=== PATIENT | female | born 1985 | race Caucasian/White ===

== ENCOUNTER 2016-06-09 11:14 | Emergency (ER) | payer MEDICAID, OTHER ==
[2016-06-09 11:25] VITALS: BP 115/72
--- NOTE | 2016-06-09 12:06 | UC ---
FLU HPI - HPI Summary HPI Summary: 1 week of worsening cough, chest congestion fever around 100. work in a [employer] and did get a flu vaccine - History of Current Complaint Chief Complaint: UCRespiratory Stated Complaint: COUGH CONGESTION Time Seen by Provider: 06/09/16 11:58 Hx Obtained From: Patient Hx Last Menstrual Period: 06/07/16 ?: No Onset/Duration: Sudden Onset, Lasting Days - 7, Still Present Severity Currently: Moderate Severity Initially: Moderate Pain Intensity: 7 Pain Scale Used: 0-10 Numeric Associated Signs & Symptoms: Positive: Fever - 100, Myalgia, Cough Related Hx: Possible Flu/Infectious Exposure, Smoking - Allergy/Home Medications Allergies/Adverse Reactions: Allergies Allergy/AdvReac Type Severity Reaction Status Date / Time Promethazine [From Phenergan] Allergy Mild Hives Verified 06/09/16 11:21 Atomoxetine [From Strattera] AdvReac Mild Palpitation Verified 06/09/16 11:21 s Morphine AdvReac Headache Verified 06/09/16 11:21 Home Medications: Home Medications QUEtiapine TAB* [Seroquel TAB*] 100 mg PO BEDTIME 06/09/16 [History Confirmed ] PMH/Surg Hx/FS Hx/Imm Hx Previously Healthy: No Endocrine History Of: Denies: Diabetes, Thyroid Disease Cardiovascular History Of: Denies: Cardiac Disorders, Hypertension, Pacemaker/ICD, Congestive Heart Failure, Deep Vein Thrombosis Respiratory History Of: Denies: COPD, Asthma, Pneumonia, Pulmonary Embolism GI/ History Of: Denies: Ulcer, Gastrointestinal Bleed, Gall Bladder Disease, Renal Disease Neurological History Of: Reports: Migraine Denies: TIA, CVA, Dementia, Seizures Psychological History Of: Reports: Depression Denies: Anxiety, Bipolar Disorder, Schizophrenia Cancer History Of: Denies: Lung Cancer Other History Of: Negative For: Anticoagulant Therapy - Surgical History Surgical History: Yes Surgery Procedure, Year, and Place: tonsills/cyst removed right breast/ /TUBAL LIGATION - Family History Known Family History: Positive: None - Social History Occupation: Employed Full-time Lives: With Family Alcohol Use: None Substance Use Type: None, Marijuana Substance Use Comment - Amount & Last Used: former Smoking Status (MU): Light Every Day Tobacco Smoker Amount Used/How Often: 1/2 PPD Length of Time of Smoking/Using Tobacco: since age 16 Have You Smoked in the Last Year: Yes Household Exposure Type: Cigarettes Cessation Counseling: Counseled 3+Min - 10 Min - Immunization History Most Recent Tetanus Shot: not sure Review of Systems Constitutional: Fever, Chills Skin: Negative Eyes: Negative ENT: Negative Respiratory: Shortness Of Breath, Cough Cardiovascular: Negative Gastrointestinal: Negative Genitourinary: Negative Motor: Negative Neurovascular: Negative Musculoskeletal: Arthralgia Neurological: Negative Psychological: Negative All Other Systems Reviewed And Are Negative: Yes Physical Exam Triage Information Reviewed: Yes Appearance: Well-Nourished, Ill-Appearing - mild-moderate, Pain Distress - mild Vital Signs: Initial Vital Signs Temp 98.6 F 06/09/16 11:22 Pulse 84 06/09/16 11:22 Resp 20 06/09/16 11:22 BP 115/72 06/09/16 11:22 Pulse Ox 99 06/09/16 11:22 Vital Signs Reviewed: Yes Eye Exam: Normal Eyes: Positive: Conjunctiva Clear ENT Exam: Normal ENT: Positive: Normal ENT inspection, Hearing grossly normal, Pharynx normal, TMs normal. Negative: Nasal congestion, Nasal drainage, Tonsillar swelling, Tonsillar exudate, Trismus, Other: Dental Exam: Normal Neck exam: Normal Neck: Positive: Supple, Nontender, No Lymphadenopathy Respiratory Exam: Normal Respiratory: Positive: Chest non-tender, No respiratory distress, No accessory muscle use, Wheezing - left Cardiovascular Exam: Normal Cardiovascular: Positive: RRR, No Murmur, Pulses Normal, Brisk Capillary Refill Musculoskeletal Exam: Normal Musculoskeletal: Positive: Strength Intact, ROM Intact, No Edema Neurological Exam: Normal Neurological: Positive: Alert, Muscle Tone Normal Psychological Exam: Normal Skin Exam: Normal Diagnostics - Laboratory Diagnostic Studies Completed/Ordered: influenza B (+) - Radiology No standard instances Xray Interpretation: No Acute Changes Radiology Interpretation Completed By: Radiologist Flu Course/Dx - Course Course Of Treatment: nicotine cesation information, prednisone, albuterol, increase fluids, rest off work follow with pcp - Differential Dx/Diagnosis Differential Diagnosis/HQI/PQRI: Influenza, Pneumonia, Upper Respiratory Infection Provider Diagnoses: Influenz B , nicotine dependant Discharge - Discharge Plan Condition: Stable Disposition: HOME Prescriptions: Albuterol HFA INHALER* [Ventolin HFA Inhaler*] 2 puff INH Q4H PRN #1 mdi PRN Reason: cough/wheeze predniSONE TAB* [Deltasone TAB*] 10 mg PO DAILY #20 tab Patient Education Materials: How to Use a Metered-Dose Inhaler (ED), Influenza (ED) Forms: *Work Release Referrals: Puma Briones MD [Primary Care Provider] - 5 Days
[2016-06-09] MEDS ORDERED: Albuterol/Ipratropium NEB.SOL* Albuterol 2.5 MG/Ipratropium 0.5 MG 3 ML INH ONE (12:07)
[2016-06-09] MEDS ORDERED: predniSONE TAB* 20 MG PO ONE (12:07)
--- NOTE | 2016-06-09 12:46 | RAD ---
Indication: Shortness of breath, cough. 2 views of the chest including dual energy PA views demonstrate no mediastinal shift. Heart is of normal size and configuration. Lung dennis show no pleural fluid, pneumonia or pneumothorax. IMPRESSION: No active cardiopulmonary disease is noted.
== END 2016-06-09 13:20 | disposition home or self-care (01) ==
LOC: UCEAST 11:14
DX: J11.1 Influenza due to unidentified influenza virus with other respiratory manifestations (principal); F17.210 Nicotine dependence, cigarettes, uncomplicated; Z88.5 Allergy status to narcotic agent; Z88.8 Allergy status to other drugs, medicaments and biological substances; Z71.6 Tobacco abuse counseling
CPT/HCPCS: 71020; 87502; 99212; A9270-GY; G0463; J7512

== ENCOUNTER 2016-06-10 06:42 | Emergency (ER) | payer OTHER ==
[2016-06-10] MEDS ORDERED: NS 0.9% 1000 ML* 2,000 ML IV ONE (07:46)
[2016-06-10] MEDS ORDERED: Ketorolac INJ* 30 MG/ML 1 ML VIAL IV ONE (07:46)
[2016-06-10] MEDS ORDERED: diPHENhydraMINE IV* 50 MG/ML 1 ml VIAL (BENADRYL) IV ONE (07:46)
[2016-06-10] MEDS ORDERED: Metoclopramide IV* 5 MG/ML 2 ML VIAL IV SLOW PU ONE (07:47)
[2016-06-10 09:37] VITALS: BP 93/61
--- NOTE | 2016-06-10 09:41 | ED ---
Headache - HPI Summary HPI Summary: Patient arrives to ED with CC of migraine THOMAS which began this morning. She was seen in [facility] yesterday and dx with influenza. She is not on tamiflu d/t onset of symptoms. Currently on prednisone. She states she has had chronic migraines in the past which have been well controlled with marijuana. She states she cannot smoke marijuana today d/t coughing fits making her flu symptoms worse. She denies SOB, but feels heavy in her chest. She also endorses body aches, chills and generalized malaise. She does not take any home medications for any reason. Afebrile on arrival. - History Of Current Complaint Chief Complaint: EDHeadache Stated Complaint: MIGRAINE Time Seen by Provider: 06/10/16 07:25 Hx Obtained From: Patient Hx Last Menstrual Period: 06/07/16 Onset/Duration: Gradual Onset, Started hours ago Initially Headache Was: Initial Pain Scale(0-10)= - 8 Currently Pain Is: Current Pain Scale(0-10)= - 8 Timing: Constant Character: Throbbing, Pressure, Migraine Location of Headache: Frontal Aggravating Factor: Bright Lights, Other - recent flu dx Allevating Factors: Rest Associated Signs And Symptoms: Nausea Related History: Similar Episode/DX As: - previous migraines - Risk Factors SAH Risk Factors: Negative Meningitis Risk Factors: Negative SDH Risk Factors: Negative Temporal Arteritis Risk Factors: Female, - Allergies/Home Medications Allergies/Adverse Reactions: Allergies Allergy/AdvReac Type Severity Reaction Status Date / Time Promethazine [From Phenergan] Allergy Mild Hives Verified 06/09/16 11:21 Atomoxetine [From Strattera] AdvReac Mild Palpitation Verified 06/09/16 11:21 s Morphine AdvReac Headache Verified 06/09/16 11:21 PMH/Surg Hx/FS Hx/Imm Hx Previously Healthy: Yes Endocrine/Hematology History: Denies: Hx Anticoagulant Therapy, Hx Diabetes, Hx Thyroid Disease, Hx Anemia , Hx Unexplained Bleeding Cardiovascular History: Denies: Hx Aneurysm, Hx Angina, Hx Angioplasty, Hx Auto Implanted Cardiovert Defib, Hx Cardiac Arrest, Hx Cardiomegaly, Hx Congenital Heart Disease, Hx Congestive Heart Failure, Hx Coronary Artery Disease, Hx Deep Vein Thrombosis, Hx Hypercholesterolemia, Hx Hypotension, Hx Hypertension, Hx Pacemaker/ICD, Hx Peripheral Vascular Disease, Hx Rheumatic Fever, Hx Syncope, Hx Valvular Heart Disease, Other Cardiovascular Problems/Disorders Respiratory History: Denies: Hx Asthma, Hx Chronic Bronchitis, Hx Chronic Obstructive Pulmonary Disease (COPD), Hx Cystic Fibrosis, Hx Lung Cancer, Hx Pleural Effusion, Hx Pneumonia, Hx Pulmonary Edema, Hx Pulmonary Embolism, Hx Seasonal Allergies, Hx Sleep Apnea, Other Respiratory Problems/Disorders GI History: Reports: Other GI Disorders - nausea Denies: Hx Cirrhosis, Hx Crohn's Disease, Hx Diverticulosis, Hx Gall Bladder Disease, Hx Gastroesophageal Reflux Disease, Hx Gastrointestinal Bleed, Hx Hiatal Hernia, Hx Irritable Bowel, Hx Jaundice, Hx Obstructive Bowel, Hx Ileostomy, Hx Pyloric Stenosis, Hx Ulcer History: Denies: Hx Renal Disease Musculoskeletal History: Reports: Hx Back Problems - Old compression fx in L2 Denies: Hx Arthritis, Hx Bursitis, Hx Congenital Bone Abnormalities, Hx Fibromyalgia, Hx Gout, Hx Orthopedic Injury, Hx Osteoporosis, Hx Scoliosis, Hx Tendonitis Comment Only: Other Musculoskeletal History - hx left ankle/L2 compression fx Sensory History: Reports: Hx Contacts or Glasses - contacts, Other Sensory Impairments - Finds night driving or driving in glaring sun difficult. Denies: Hx Cataracts, Hx Eye Injury, Hx Eye Prosthesis, Hx Glaucoma, Hx Macular Degeneration, Hx Vision Problem, Hx Deafness, Hx Hearing Aid, Hx Hearing Problem Opthamlomology History: Reports: Hx Contacts or Glasses - contacts, Other Sensory Impairments - Finds night driving or driving in glaring sun difficult. Denies: Hx Cataracts, Hx Eye Injury, Hx Eye Prosthesis, Hx Glaucoma, Hx Macular Degeneration, Hx Vision Problem Neurological History: Reports: Hx Headaches, Hx Migraine Denies: Hx Dementia, Hx Developmental Delay, Hx Seizures, Hx Spinal Cord Injury, Hx Transient Ischemic Attacks (TIA), Other Neuro Impairments/Disorders Psychiatric History: Reports: Hx Depression, Hx Panic Disorder, Other Psychiatric Issues/Disorders - Attention deficit disorder Denies: Hx Anxiety, Hx Attention Deficit Hyperactivity Disorder, Hx Eating Disorder, Hx Post Traumatic Stress Disorder, Hx Inpatient Treatment, Hx Community Mental Health Tx, Hx Schizophrenia, Hx Bipolar Disorder, Hx Suicide Attempt, Hx of Violent Episodes Against Others, Hx Substance Abuse - Surgical History Surgery Procedure, Year, and Place: tonsills/cyst removed right breast/ /TUBAL LIGATION Hx Anesthesia Reactions: No - Immunization History Date of Tetanus Vaccine: PT STATES UNSURE Date of Influenza Vaccine: None Infectious Disease History: No Infectious Disease History: Reports: Hx Hepatitis - HEP C, Hx Shingles - 2009 or 2009 Denies: Hx Clostridium Difficile, Hx Human Immunodeficiency Virus (HIV), Hx Tuberculosis, Hx Known/Suspected VRE, Hx Known/Suspected VRSA, History Other Infectious Disease, Traveled Outside the [place] in Last 30 Days - Family History Known Family History: Positive: None - Social History Occupation: Employed Full-time Lives: Alone Alcohol Use: None Hx Substance Use: Yes Substance Use Type: Reports: None, Marijuana Substance Use Comment - Amount & Last Used: former Hx Tobacco Use: Yes Smoking Status (MU): Light Every Day Tobacco Smoker Amount Used/How Often: 1/2 PPD Length of Time of Smoking/Using Tobacco: since age 16 Have You Smoked in the Last Year: Yes Review of Systems Positive: Chills, Fatigue Positive: Photophobia ENT: Negative Cardiovascular: Negative Positive: Cough Positive: Nausea Positive: no symptoms reported, see HPI Musculoskeletal: Negative Positive: Headache Psychological: Normal All Other Systems Reviewed And Are Negative: Yes Physical Exam Triage Information Reviewed: Yes Vital Signs On Initial Exam: Initial Vitals Temp Pulse Resp BP Pulse Ox 97.7 F 76 16 128/72 100 06/10/16 06:44 06/10/16 06:44 06/10/16 06:44 06/10/16 06:44 06/10/16 06:44 Vital Signs Reviewed: Yes Appearance: Positive: Ill-Appearing Skin: Positive: Warm, Skin Color Reflects Adequate Perfusion Head/Face: Positive: Normal Head/Face Inspection Eyes: Positive: EOMI, MALU Neck: Positive: Supple, No Lymphadenopathy Respiratory/Lung Sounds: Positive: Rhonchi Cardiovascular: Positive: Normal, RRR Musculoskeletal: Positive: Normal, Strength/ROM Intact Neurological: Positive: Normal, Normal Gait, Speech Normal Psychiatric: Positive: Normal Diagnostics - Vital Signs Vital Signs Temp Pulse Resp BP Pulse Ox 06/10/16 06:44 97.7 F 76 16 128/72 100 - Laboratory Result Diagrams: 06/10/16 11:02 Lab Statement: Any lab studies that have been ordered have been reviewed, and results considered in the medical decision making process. Headache Course/Dx - Course Course Of Treatment: Fluids given. Reglan, benadryl and toradol given. Patient improved. Labs WNL. rhonchorous lung sounds bilaterally, chest xray yesterday showed no pathology. Flu positive yesterday. currently on prednisone. Xray yesterday read as WNL with no active disease. Reglan rx given. Continue fluids, rest, humidifer and tylenol for fever. Encouraged regimen of ibuprofen and reglan if symptoms of migraine develop again. - Diagnoses Differential Diagnosis/HQI/PQRI: Migraine, Sinus Headache, Tension Headache, Other - marijuana rebound Provider Diagnoses: Migraine without aura Discharge - Discharge Plan Condition: Stable Disposition: HOME Prescriptions: Metoclopramide TAB* [Reglan TAB*] 10 mg PO Q8H #15 tab MDD 3 Patient Education Materials: Migraine Headache (ED) Referrals: Puma Briones MD [Primary Care Provider] - Additional Instructions: Follow up with PCP. Rest, drink plenty of fluids, humidifier in the home. Ibuprofen 600mg and Reglan 10mg at first onset of THOMAS. At night, you may add 25mg Benadryl. If you develop worsening symptoms, come back to ED.
[2016-06-10 11:10] LABS: Hematocrit 39 % (35-47); Hemoglobin 12.9 g/dl (12.0-16.0); Mean Corpuscular HGB Conc 33 g/dl (31-36); Mean Corpuscular Hemoglobin 32 pg (27-31); Mean Corpuscular Volume 96 fL (80-97); Mean Platelet Volume 8 um3 (7.4-10.4); Red Blood Count 4.03 10^6/ul (4.0-5.4); Red Cell Distribution Width 13 % (10.5-15); White Blood Count 7.2 10^3/ul (3.5-10.8)
[2016-06-10 11:24] LABS: Albumin 3.7 g/dL (3.2-5.2); BUN/Creatinine Ratio 18.3 (8-20); Calcium 8.6 mg/dL (8.6-10.3); EGFR Non-African American 117.4 (>60); Globulin 3.3 g/dL (2-4); Potassium 3.3 mmol/L (3.5-5.0); Total Bilirubin 0.3 mg/dL (0.2-1.0)
[2016-06-10 12:58] LABS: Erythrocyte Sed Rate 17 mm/Hr (0-14)
== END 2016-06-10 12:00 | disposition home or self-care (01) ==
LOC: ED 06:42
DX: G43.009 Migraine without aura, not intractable, without status migrainosus (principal); R53.83 Other fatigue; R68.83 Chills (without fever); R05 Cough; R51 Headache; F17.210 Nicotine dependence, cigarettes, uncomplicated
CPT/HCPCS: 36415; 80053; 83605; 85025; 85652; 96374; 96375; 99283; J1200; J1885

== ENCOUNTER 2017-10-12 22:04 | Emergency (ER) | payer SELFPAY ==
[2017-10-12] MEDS ORDERED: predniSONE TAB* 20 MG PO ONE (23:13)
[2017-10-12] MEDS ORDERED: diPHENhydraMINE PO* 25 MG PO ONE (23:13)
[2017-10-12] MEDS ORDERED: Famotidine TAB* 20 MG PO ONE (23:13)
[2017-10-12] MEDS ORDERED: predniSONE TAB* 20 MG ONE (23:26)
--- NOTE | 2017-10-13 00:25 | ED ---
Bite Injury/Animal - HPI Summary HPI Summary: Complains of redness and swelling to right hand subsequent to possible insect bites. Patient states also raised bumps that appeared to be insect bites appearing on right forearm and upper arm. Bumps are pruritic, nonpainful. Denies prior reaction to insect bites. Unaware of when she was bitten or what she was bitten by. Also denies fever, cough, sore throat, CP, SOB, oral swelling, facial swelling, N/V/D, abdominal pain, change in urinary BM. Medical history is migraines. Patient's states she took Benadryl 50 MG at 2:30 PM - History of Current Complaint Chief Complaint: EDRashSkinAbscess Stated Complaint: RT HAND SWOLLEN Time Seen by Provider: 10/12/17 22:58 Hx Obtained From: Patient Hx Last Menstrual Period: 12/23/16 Onset of Injury: Happened hours ago Severity Initially: Mild Severity Currently: Moderate Pain Intensity: 7 Pain Scale Used: 0-10 Numeric Aggravating Factor(s): Nothing Alleviating Factor(s): Nothing Associated Signs And Symptoms: Positive: Negative - Allergies/Home Medications Allergies/Adverse Reactions: Allergies Allergy/AdvReac Type Severity Reaction Status Date / Time MS Promethazine Allergy Mild Hives Verified 01/25/17 16:26 [From Phenergan] MS Atomoxetine AdvReac Mild Palpitation Verified 01/25/17 16:26 [From Strattera] s MS Morphine [Morphine] AdvReac Headache Verified 01/25/17 16:26 PMH/Surg Hx/FS Hx/Imm Hx Endocrine/Hematology History: Denies: Hx Anticoagulant Therapy, Hx Diabetes, Hx Thyroid Disease, Hx Anemia , Hx Unexplained Bleeding Cardiovascular History: Denies: Hx Aneurysm, Hx Angina, Hx Angioplasty, Hx Auto Implanted Cardiovert Defib, Hx Cardiac Arrest, Hx Cardiomegaly, Hx Congenital Heart Disease, Hx Congestive Heart Failure, Hx Coronary Artery Disease, Hx Deep Vein Thrombosis, Hx Hypercholesterolemia, Hx Hypotension, Hx Hypertension, Hx Pacemaker/ICD, Hx Peripheral Vascular Disease, Hx Rheumatic Fever, Hx Syncope, Hx Valvular Heart Disease, Other Cardiovascular Problems/Disorders Respiratory History: Denies: Hx Asthma, Hx Chronic Bronchitis, Hx Chronic Obstructive Pulmonary Disease (COPD), Hx Cystic Fibrosis, Hx Lung Cancer, Hx Pleural Effusion, Hx Pneumonia, Hx Pulmonary Edema, Hx Pulmonary Embolism, Hx Seasonal Allergies, Hx Sleep Apnea, Other Respiratory Problems/Disorders GI History: Reports: Other GI Disorders - nausea Denies: Hx Cirrhosis, Hx Crohn's Disease, Hx Diverticulosis, Hx Gall Bladder Disease, Hx Gastroesophageal Reflux Disease, Hx Gastrointestinal Bleed, Hx Hiatal Hernia, Hx Irritable Bowel, Hx Jaundice, Hx Obstructive Bowel, Hx Ileostomy, Hx Pyloric Stenosis, Hx Ulcer History: Denies: Hx Renal Disease Musculoskeletal History: Reports: Hx Back Problems - Old compression fx in L2 Denies: Hx Arthritis, Hx Bursitis, Hx Congenital Bone Abnormalities, Hx Fibromyalgia, Hx Gout, Hx Orthopedic Injury, Hx Osteoporosis, Hx Scoliosis, Hx Tendonitis Comment Only: Other Musculoskeletal History - hx left ankle/L2 compression fx Sensory History: Reports: Hx Contacts or Glasses - contacts, Other Sensory Impairments - Finds night driving or driving in glaring sun difficult. Denies: Hx Cataracts, Hx Eye Injury, Hx Eye Prosthesis, Hx Glaucoma, Hx Macular Degeneration, Hx Vision Problem, Hx Deafness, Hx Hearing Aid, Hx Hearing Problem Opthamlomology History: Reports: Hx Contacts or Glasses - contacts, Other Sensory Impairments - Finds night driving or driving in glaring sun difficult. Denies: Hx Cataracts, Hx Eye Injury, Hx Eye Prosthesis, Hx Glaucoma, Hx Macular Degeneration, Hx Vision Problem Neurological History: Reports: Hx Headaches, Hx Migraine Denies: Hx Dementia, Hx Developmental Delay, Hx Seizures, Hx Spinal Cord Injury, Hx Transient Ischemic Attacks (TIA), Other Neuro Impairments/Disorders Psychiatric History: Reports: Hx Depression, Hx Panic Disorder, Other Psychiatric Issues/Disorders - Attention deficit disorder Denies: Hx Anxiety, Hx Attention Deficit Hyperactivity Disorder, Hx Eating Disorder, Hx Post Traumatic Stress Disorder, Hx Inpatient Treatment, Hx Community Mental Health Tx, Hx Schizophrenia, Hx Bipolar Disorder, Hx Suicide Attempt, Hx of Violent Episodes Against Others, Hx Substance Abuse - Surgical History Surgery Procedure, Year, and Place: tonsills/cyst removed right breast/ /TUBAL LIGATION Hx Anesthesia Reactions: No - Immunization History Date of Tetanus Vaccine: unk Date of Influenza Vaccine: fall 2016 Infectious Disease History: No Infectious Disease History: Reports: Hx Hepatitis - HEP C, Hx Shingles - 2008 or 2009 Denies: Hx Clostridium Difficile, Hx Human Immunodeficiency Virus (HIV), Hx Tuberculosis, Hx Known/Suspected VRE, Hx Known/Suspected VRSA, History Other Infectious Disease, Traveled Outside the [place] in Last 30 Days - Family History Known Family History: Positive: None - Social History Alcohol Use: None Hx Substance Use: Yes Substance Use Type: Reports: Marijuana Substance Use Comment - Amount & Last Used: former Hx Tobacco Use: Yes Smoking Status (MU): Light Every Day Tobacco Smoker Amount Used/How Often: 1/2 PPD Length of Time of Smoking/Using Tobacco: since age 16 Have You Smoked in the Last Year: Yes Review of Systems Constitutional: Negative Eyes: Negative ENT: Negative Cardiovascular: Negative Respiratory: Negative Gastrointestinal: Negative Genitourinary: Negative Musculoskeletal: Negative Positive: Rash Neurological: Negative Psychological: Normal All Other Systems Reviewed And Are Negative: Yes Physical Exam - Summary Physical Exam Summary: Redness and swelling to dorsal surface of right hand, with raised areas resembling insect bites. Same raised areas of insect bites on upper right forearm and upper right arm. Rash is blanchable. No oral or facial swelling. No work of breathing. Triage Information Reviewed: Yes Vital Signs On Initial Exam: Initial Vitals Temp Pulse Resp BP Pulse Ox 98.9 F 98 20 132/78 98 10/12/17 22:12 10/12/17 22:12 10/12/17 22:12 10/12/17 22:12 10/12/17 22:12 Vital Signs Reviewed: Yes Appearance: Positive: Well-Appearing Skin: Positive: Warm Head/Face: Positive: Normal Head/Face Inspection Eyes: Positive: Normal ENT: Positive: Normal ENT inspection Neck: Positive: Supple Respiratory/Lung Sounds: Positive: Clear to Auscultation Cardiovascular: Positive: Normal Abdomen Description: Positive: Nontender Musculoskeletal: Positive: Normal Neurological: Positive: Normal Psychiatric: Positive: Normal AVPU Assessment: Alert - [place] Coma Scale Best Eye Response: 4 - Spontaneous Best Motor Response: 6 - Obeys Commands Best Verbal Response: 5 - Oriented Coma Scale Total: 15 Diagnostics - Vital Signs Vital Signs Temp Pulse Resp BP Pulse Ox 10/12/17 22:12 98.9 F 98 20 132/78 98 - Laboratory Lab Statement: Any lab studies that have been ordered have been reviewed, and results considered in the medical decision making process. Bite Injury Course/Dx - Course Course Of Treatment: Complains of redness and swelling to right hand subsequent to possible insect bites. Patient states also raised bumps that appeared to be insect bites appearing on right forearm and upper arm. Bumps are pruritic, nonpainful. Denies prior reaction to insect bites. Unaware of when she was bitten or what she was bitten by. Also denies fever, cough, sore throat, CP, SOB, oral swelling, facial swelling, N/V/D, abdominal pain, change in urinary BM. Medical history is migraines. Patient's states she took Benadryl 50 MG at 2:30 PM. Redness and swelling to dorsal surface of right hand, with raised areas resembling insect bites. Same raised areas of insect bites on upper right forearm and upper right arm. Rash is blanchable. No oral or facial swelling. No work of breathing. Swelling diminished somewhat one hour post meds. No oral or facial swelling. Rx for prednisone 40 mg daily 5 days - Diagnoses Provider Diagnosis: Allergic reaction Discharge - Sign-Out/Discharge Documenting (check all that apply): Patient Departure - Discharge Plan Condition: Stable Disposition: HOME Prescriptions: predniSONE TAB* [Deltasone 20 MG TAB*] 40 mg PO DAILY 5 Days #5 tab Patient Education Materials: General Allergic Reaction (ED) Referrals: Puma Briones MD [Primary Care Provider] - Additional Instructions: Take prednisone as directed. Follow-up with primary care. Return to the ED for any new or worsening symptoms - Billing Disposition and Condition Condition: STABLE Disposition: Home
[2017-10-13 01:05] VITALS: BP 128/76
== END 2017-10-13 01:03 | disposition home or self-care (01) ==
LOC: ED 22:04
DX: R21 Rash and other nonspecific skin eruption (principal); T78.40XA Allergy, unspecified, initial encounter
CPT/HCPCS: 99282; A9270-GY; J7512

== ENCOUNTER 2018-03-05 09:59 | Emergency (ER) | payer SELFPAY ==
[2018-03-05 10:27] VITALS: BP 124/72
--- NOTE | 2018-03-05 10:48 | UC ---
General HPI - HPI Summary HPI Summary: Two days of URI symtoms - cough, congestion and ears feel full. No N/V/D. No SOB Taking Mucinex with minimal relief. Chest feels sore. Good PO. Daughter also here with same symptoms. Needs a note for work - Works at [employer]. PMhx & Meds: Reviewed - History of Current Complaint Chief Complaint: UCRespiratory Stated Complaint: HEAD/CHEST CONGESTION Time Seen by Provider: 03/05/18 10:18 Hx Last Menstrual Period: 02/22/18 Pain Intensity: 3 - Allergy/Home Medications Allergies/Adverse Reactions: Allergies Allergy/AdvReac Type Severity Reaction Status Date / Time atomoxetine [From Strattera] Allergy Severe Palpitation Verified 03/05/18 10:29 s morphine Allergy Severe Headache Verified 03/05/18 10:29 promethazine [From Phenergan] Allergy Severe Hives Verified 03/05/18 10:29 Home Medications: Home Medications NK [No Home Medications Reported] 03/05/18 [History Confirmed 03/05/18] PMH/Surg Hx/FS Hx/Imm Hx Previously Healthy: Yes Other History Of: Hepatitis C Negative For: Anticoagulant Therapy - Surgical History Surgical History: Yes Surgery Procedure, Year, and Place: tonsills/cyst removed right breast/ /TUBAL LIGATION - Family History Known Family History: Positive: None - Social History Alcohol Use: None Substance Use Type: Marijuana Substance Use Comment - Amount & Last Used: former Smoking Status (MU): Former Smoker Amount Used/How Often: 1/2 PPD Length of Time of Smoking/Using Tobacco: since age 16 Have You Smoked in the Last Year: Yes Household Exposure Type: Cigarettes - Immunization History Most Recent Tetanus Shot: not sure Review of Systems All Other Systems Reviewed And Are Negative: Yes Physical Exam Appearance: Well-Appearing Vital Signs: Initial Vital Signs Temp 97.7 F 03/05/18 10:18 Pulse 80 03/05/18 10:18 Resp 16 03/05/18 10:18 BP 124/72 03/05/18 10:18 Pulse Ox 98 03/05/18 10:18 Vital Signs Reviewed: Yes ENT: Positive: Nasal congestion, Other - clear fluid behind TM's b/l Neck: Positive: Supple, Nontender Respiratory: Positive: Lungs clear, Normal breath sounds, No respiratory distress Cardiovascular: Positive: RRR, No Murmur Abdomen Description: Positive: Nontender, Soft Course/Dx - Course Course Of Treatment: This is a 32 yr old with URI symptoms. Dx; Upper REspiratory infection. Plan. Continue supportive care. Continue to drink fluids. Can use decongestant and/or cough medicine over the counter as needed as directed. If symptoms persist or worsen, call primary for further evaluation - Diagnoses Provider Diagnosis: Upper respiratory infection Discharge - Sign-Out/Discharge Documenting (check all that apply): Patient Departure All imaging exams completed and their final reports reviewed: No Studies - Discharge Plan Condition: Good Disposition: HOME Patient Education Materials: Upper Respiratory Infection (DC) Forms: *Work Release Referrals: Puma Briones MD [Primary Care Provider] - Additional Instructions: Continue supportive care Continue to drink fluids Can use decongestant and/or cough medicine over the counter as needed as directed If symptoms persist or worsen, call primary for further evaluation - Billing Disposition and Condition Condition: GOOD Disposition: Home
== END 2018-03-05 11:00 | disposition home or self-care (01) ==
LOC: UCEAST 09:59
DX: J06.9 Acute upper respiratory infection, unspecified (principal); Z88.5 Allergy status to narcotic agent; Z88.8 Allergy status to other drugs, medicaments and biological substances; Z87.891 Personal history of nicotine dependence
CPT/HCPCS: 99211; G0463

== ENCOUNTER 2018-03-24 10:33 | Emergency (ER) | payer SELFPAY ==
[2018-03-24 10:55] VITALS: BP 116/77
--- NOTE | 2018-03-24 11:21 | UC ---
Respiratory Complaint HPI - HPI Summary HPI Summary: 3 WKS OF COUCH AND 3 DAYS OF L EAR PAIN - History of Current Complaint Chief Complaint: UCRespiratory Stated Complaint: CONGESTION, EAR PAIN Time Seen by Provider: 03/24/18 11:14 Hx Obtained From: Patient Hx Last Menstrual Period: 03/18/18 Onset/Duration: Gradual Onset Pain Intensity: 4 Pain Scale Used: 0-10 Numeric Character: Cough: Productive Associated Signs And Symptoms: Positive: Fever, Chills. Negative: Dyspnea, Pleuritic Chest Pain, Wheezing - Allergies/Home Medications Allergies/Adverse Reactions: Allergies Allergy/AdvReac Type Severity Reaction Status Date / Time atomoxetine [From Strattera] Allergy Severe Palpitation Verified 03/05/18 10:29 s morphine Allergy Severe Headache Verified 03/05/18 10:29 promethazine [From Phenergan] Allergy Severe Hives Verified 03/05/18 10:29 PMH/Surg Hx/FS Hx/Imm Hx Previously Healthy: Yes Other History Of: Hepatitis C Negative For: Anticoagulant Therapy - Surgical History Surgical History: Yes Surgery Procedure, Year, and Place: tonsills/cyst removed right breast/ /TUBAL LIGATION - Family History Known Family History: Positive: None - Social History Alcohol Use: None Substance Use Type: Marijuana Substance Use Comment - Amount & Last Used: former Smoking Status (MU): Former Smoker Amount Used/How Often: 1/2 PPD Length of Time of Smoking/Using Tobacco: since age 16 Have You Smoked in the Last Year: Yes Household Exposure Type: Cigarettes - Immunization History Most Recent Tetanus Shot: not sure Review of Systems All Other Systems Reviewed And Are Negative: Yes Constitutional: Positive: Fever Skin: Positive: Negative ENT: Positive: Ear Ache, Sinus Congestion Respiratory: Positive: Cough - PRODUCTIVE Cardiovascular: Positive: Negative Neurological: Negative: Headache Physical Exam Triage Information Reviewed: Yes Appearance: Well-Appearing Vital Signs: Initial Vital Signs Temp 97.4 F 03/24/18 10:52 Pulse 74 03/24/18 10:52 Resp 18 03/24/18 10:52 BP 116/77 03/24/18 10:52 Pulse Ox 99 03/24/18 10:52 Vital Signs Reviewed: Yes ENT: Positive: Pharynx normal, TMs normal, Uvula midline Neck: Positive: Supple, Nontender Respiratory: Positive: No respiratory distress, Rhonchi - R SIDE. Negative: Crackles, Stridor, Wheezing Cardiovascular Exam: Normal Neurological: Negative: Fatigued Skin: Negative: Rashes UC Diagnostic Evaluation - Laboratory O2 Sat by Pulse Oximetry: 99 Respiratory Course/Dx - Course Course Of Treatment: ABNORMAL LUNG SOUNDS ON R SIDE - Differential Dx/Diagnosis Differential Diagnosis/HQI/PQRI: Asthma, Bronchitis, Lower Resp Infection, Other Provider Diagnosis: Lower resp. tract infection Discharge - Sign-Out/Discharge Documenting (check all that apply): Patient Departure All imaging exams completed and their final reports reviewed: No Studies - Discharge Plan Condition: Good Disposition: HOME Prescriptions: Azithromycin TAB* [Zithromax TAB (Z-MAGALY) 250 mg #6 tabs] 2 tab PO .TODAY, THEN 1 DAILY #1 magaly Patient Education Materials: Acute Cough (ED) Forms: *Work Release Referrals: Puma Briones MD [Primary Care Provider] - Additional Instructions: I suspect you have a viral cough but given the duration and abnormal lung sounds I am willing to treat with antibiotics. Please finish to completion. - Billing Disposition and Condition Condition: GOOD Disposition: Home
== END 2018-03-24 11:30 | disposition home or self-care (01) ==
LOC: UCEAST 10:33
DX: J22 Unspecified acute lower respiratory infection (principal); H92.02 Otalgia, left ear; Z88.8 Allergy status to other drugs, medicaments and biological substances; Z88.5 Allergy status to narcotic agent; Z87.891 Personal history of nicotine dependence
CPT/HCPCS: 99212; G0463

== ENCOUNTER 2018-03-28 01:29 | Emergency (ER) | payer SELFPAY ==
--- NOTE | 2018-03-28 01:34 | ED ---
Substance Abuse/Use - HPI Summary HPI Summary: This patient is a 32 year old F brought in by ambulance with a chief complaint of heroin overdose since just [employer]. The patient was found unconscious and unresponsive on the floor of her bathroom by her boyfriend. He also mentioned that he found a butterfly and syringe nearby. EMS states that she regained consciousness right before they administered Narcan, which they halted. Patient reports memory loss, confusion, and emesis. She denies deliberate overdose and claims it was straight heroin. She says that she uses heroin less than once a month. Her boyfriend states that she is taking an antibiotic but doesnt know what its for. The patient had an episode of vomiting while in the ED. She does not remember a lot of the incident and asked where she was found. PMHX none. SHX regular marijuanause , lives with boyfriend, occasional heroin use. - History Of Current Complaint Stated Complaint: OD Time Seen by Provider: 03/28/18 01:30 Hx Obtained From: Patient, Family/Treater - boyfriend, EMS Hx Last Menstrual Period: 03/18/18 Onset/Duration of Drug/ETOH Abuse: Hours Ingestion History: Type/Name Of Drug - heroin Timing Of Abuse: Intermittent Character: Stuporous Associated Signs And Symptoms: Confused, Vomiting - Allergies/Home Medications Allergies/Adverse Reactions: Allergies Allergy/AdvReac Type Severity Reaction Status Date / Time atomoxetine [From Strattera] Allergy Severe Palpitation Verified 03/05/18 10:29 s morphine Allergy Severe Headache Verified 03/05/18 10:29 promethazine [From Phenergan] Allergy Severe Hives Verified 03/05/18 10:29 PMH/Surg Hx/FS Hx/Imm Hx Endocrine/Hematology History: Denies: Hx Anticoagulant Therapy, Hx Diabetes, Hx Thyroid Disease, Hx Anemia , Hx Unexplained Bleeding Cardiovascular History: Denies: Hx Aneurysm, Hx Angina, Hx Angioplasty, Hx Auto Implanted Cardiovert Defib, Hx Cardiac Arrest, Hx Cardiomegaly, Hx Congenital Heart Disease, Hx Congestive Heart Failure, Hx Coronary Artery Disease, Hx Deep Vein Thrombosis, Hx Hypercholesterolemia, Hx Hypotension, Hx Hypertension, Hx Pacemaker/ICD, Hx Peripheral Vascular Disease, Hx Rheumatic Fever, Hx Syncope, Hx Valvular Heart Disease, Other Cardiovascular Problems/Disorders Respiratory History: Denies: Hx Asthma, Hx Chronic Bronchitis, Hx Chronic Obstructive Pulmonary Disease (COPD), Hx Cystic Fibrosis, Hx Lung Cancer, Hx Pleural Effusion, Hx Pneumonia, Hx Pulmonary Edema, Hx Pulmonary Embolism, Hx Seasonal Allergies, Hx Sleep Apnea, Other Respiratory Problems/Disorders GI History: Reports: Other GI Disorders - nausea Denies: Hx Cirrhosis, Hx Crohn's Disease, Hx Diverticulosis, Hx Gall Bladder Disease, Hx Gastroesophageal Reflux Disease, Hx Gastrointestinal Bleed, Hx Hiatal Hernia, Hx Irritable Bowel, Hx Jaundice, Hx Obstructive Bowel, Hx Ileostomy, Hx Pyloric Stenosis, Hx Ulcer History: Denies: Hx Renal Disease Musculoskeletal History: Reports: Hx Back Problems - Old compression fx in L2 Denies: Hx Arthritis, Hx Bursitis, Hx Congenital Bone Abnormalities, Hx Fibromyalgia, Hx Gout, Hx Orthopedic Injury, Hx Osteoporosis, Hx Scoliosis, Hx Tendonitis Comment Only: Other Musculoskeletal History - hx left ankle/L2 compression fx Sensory History: Reports: Hx Contacts or Glasses - contacts, Other Sensory Impairments - Finds night driving or driving in glaring sun difficult. Denies: Hx Cataracts, Hx Eye Injury, Hx Eye Prosthesis, Hx Glaucoma, Hx Macular Degeneration, Hx Vision Problem, Hx Deafness, Hx Hearing Aid, Hx Hearing Problem Opthamlomology History: Reports: Hx Contacts or Glasses - contacts, Other Sensory Impairments - Finds night driving or driving in glaring sun difficult. Denies: Hx Cataracts, Hx Eye Injury, Hx Eye Prosthesis, Hx Glaucoma, Hx Macular Degeneration, Hx Vision Problem Neurological History: Reports: Hx Headaches, Hx Migraine Denies: Hx Dementia, Hx Developmental Delay, Hx Seizures, Hx Spinal Cord Injury, Hx Transient Ischemic Attacks (TIA), Other Neuro Impairments/Disorders Psychiatric History: Reports: Hx Depression, Hx Panic Disorder, Other Psychiatric Issues/Disorders - Attention deficit disorder Denies: Hx Anxiety, Hx Attention Deficit Hyperactivity Disorder, Hx Eating Disorder, Hx Post Traumatic Stress Disorder, Hx Inpatient Treatment, Hx Community Mental Health Tx, Hx Schizophrenia, Hx Bipolar Disorder, Hx Suicide Attempt, Hx of Violent Episodes Against Others, Hx Substance Abuse - Surgical History Surgery Procedure, Year, and Place: tonsills/cyst removed right breast/ /TUBAL LIGATION Hx Anesthesia Reactions: No - Immunization History Date of Tetanus Vaccine: unk Date of Influenza Vaccine: fall 2016 Infectious Disease History: Reports: Hx Hepatitis - HEP C been treated, Hx Shingles - 2008 or 2009 Denies: Hx Clostridium Difficile, Hx Human Immunodeficiency Virus (HIV), Hx Tuberculosis, Hx Known/Suspected VRE, Hx Known/Suspected VRSA, History Other Infectious Disease - Family History Known Family History: Positive: Other - depression - Social History Alcohol Use: None Hx Substance Use: Yes Substance Use Type: Reports: Heroin, Marijuana Substance Use Comment - Amount & Last Used: former Hx Tobacco Use: Yes Smoking Status (MU): Former Smoker Amount Used/How Often: 1/2 PPD Length of Time of Smoking/Using Tobacco: since age 16 Have You Smoked in the Last Year: Yes Review of Systems Positive: Vomiting Neurological: Other - memory loss, confusion All Other Systems Reviewed And Are Negative: Yes Physical Exam - Summary Physical Exam Summary: Appearance: Well-appearing, Well-nourished, lying in bed comfortably Skin: Warm, dry, no obvious rash Eyes: sclera anicteric, no conjunctival pallor ENT: mucous membranes moist, pharynx appears normal Neck: Supple, nontender Respiratory: Clear to auscultation, no signs of respiratory distress Cardiovascular: Normal S1, S2. No murmurs. Normal distal pulses in tibial and radial bilaterally. Abdomen: Soft, nontender, normal active bowel sounds present Musculoskeletal: Normal, Strength/ROM Intact. Extremities do not appear to have track chavez. Neurological: A&Ox3, awake and alert, mentation is normal, speech is fluent and appropriate Psychiatric: affect is normal, does not appear anxious or depressed Triage Information Reviewed: Yes Vital Signs Reviewed: Yes Course/Dx - Course Course Of Treatment: This patient is a 32 year old F brought in by ambulance with a chief complaint of heroin overdose since just [employer]. The patient was found unconscious and unresponsive on the floor of her bathroom by her boyfriend. He also mentioned that he found a butterfly and syringe nearby. EMS states that she regained consciousness right before they administered Narcan, which they halted. Patient reports memory loss, confusion, and emesis. She denies deliberate overdose and claims it was straight heroin. In the ED course the patient was given Ondansetron. Patient will be discharged with follow up from Dr. Briones. The patient is agreeable with this plan. - Diagnoses Provider Diagnoses: Heroin overdose Discharge - Sign-Out/Discharge Documenting (check all that apply): Patient Departure - discharge - Discharge Plan Condition: Good Disposition: HOME Patient Education Materials: Narcotic Use Disorder (ED) Referrals: Puma Briones MD [Primary Care Provider] - Additional Instructions: If you decide to continue using heroin, you need to do so as safely as possible , which means never taking it without someone nearby, and keeping naloxone available in case of an overdose. This can be obtained at a pharmacy without a prescription. This can be the difference between life and . - Billing Disposition and Condition Condition: GOOD Disposition: Home - Attestation Statements Document Initiated by Solomon: Yes Documenting Carmellaibe: Robert Wu Provider For Whom Solomon is Documenting (Include Credential): Steve Mix MD Scribe Attestation: Robert Rico scribed for Stvee Mix MD on 03/28/18 at 0651. Scribe Documentation Reviewed: Yes Provider Attestation: The documentation as recorded by the Robert horan accurately reflects the service I personally performed and the decisions made by me, Steve Mix MD Status of Scribe Document: Viewed
[2018-03-28] MEDS ORDERED: Ondansetron ODT TAB* 4 MG SL ONE (01:56)
[2018-03-28] MEDS ORDERED: Metoclopramide IV* 5 MG/ML 2 ML VIAL IV ONE (03:26)
[2018-03-28 05:13] VITALS: BP 132/74
== END 2018-03-28 04:45 | disposition home or self-care (01) ==
LOC: ED 01:29
DX: T40.1X1A Poisoning by heroin, accidental (unintentional), initial encounter (principal); R11.10 Vomiting, unspecified; Z87.891 Personal history of nicotine dependence; R41.0 Disorientation, unspecified; Y92.9 Unspecified place or not applicable
CPT/HCPCS: 96374; 96375; 99282; A9270-GY; J2765

== ENCOUNTER 2018-12-07 10:05 | Emergency (ER) | payer SELFPAY ==
[2018-12-07 10:32] VITALS: BP 118/67
--- NOTE | 2018-12-07 10:51 | UC ---
Throat Pain/Nasal [place] HPI - HPI Summary HPI Summary: 32-year-old woman comes in with a chief complaint of upper respiratory tract infection symptoms for 2 days. She is a smoker and has had some wheezing. She' s had a runny nose sore throat chest congestion. She's tried [id number] cough medicines which helped some with the symptoms. She has rhinorrhea feels like she's having a difficult time clearing her sinuses. Patient reports she's used albuterol in the past when she's had wheezing which does help. - History of Current Complaint Chief Complaint: UCGeneralIllness Stated Complaint: RESP ISSUE Time Seen by Provider: 12/07/18 10:42 Hx Last Menstrual Period: 03/18/18 Pain Intensity: 3 - Allergies/Home Medications Allergies/Adverse Reactions: Allergies Allergy/AdvReac Type Severity Reaction Status Date / Time atomoxetine [From Strattera] Allergy Severe Palpitation Verified 12/07/18 10:33 s morphine Allergy Severe Headache Verified 12/07/18 10:33 promethazine [From Phenergan] Allergy Severe Hives Verified 12/07/18 10:33 PMH/Surg Hx/FS Hx/Imm Hx Previously Healthy: Yes Other History Of: Hepatitis C Negative For: Anticoagulant Therapy - Surgical History Surgical History: Yes Surgery Procedure, Year, and Place: tonsills/cyst removed right breast/ /TUBAL LIGATION - Family History Known Family History: Positive: None, Other - depression - Social History Alcohol Use: None Substance Use Type: None Substance Use Comment - Amount & Last Used: former Smoking Status (MU): Current Some Day Smoker Amount Used/How Often: 1/2 PPD Length of Time of Smoking/Using Tobacco: since age 16 Have You Smoked in the Last Year: Yes Household Exposure Type: Cigarettes - Immunization History Most Recent Tetanus Shot: not sure Review of Systems All Other Systems Reviewed And Are Negative: Yes Constitutional: Positive: Other - SEE HPI Skin: Positive: Negative Eyes: Positive: Negative ENT: Positive: Sore Throat, Nasal Discharge, Sinus Congestion Respiratory: Positive: Cough, Other - SEE HPI Cardiovascular: Positive: Negative Gastrointestinal: Positive: Negative Motor: Positive: Negative Neurovascular: Positive: Negative Musculoskeletal: Positive: Myalgia Neurological: Positive: Negative Psychological: Positive: Negative Is Patient Immunocompromised?: No Physical Exam Triage Information Reviewed: Yes Appearance: No Pain Distress, Well-Nourished, Ill-Appearing - MILD Vital Signs: Initial Vital Signs Temp 98.5 F 12/07/18 10:28 Pulse 88 12/07/18 10:28 Resp 18 12/07/18 10:28 BP 118/67 12/07/18 10:28 Pulse Ox 96 12/07/18 10:28 Vital Signs Reviewed: Yes Eye Exam: Normal Eyes: Positive: Conjunctiva Clear ENT: Positive: Pharynx normal, Nasal congestion, Nasal drainage, TMs normal Neck: Positive: Supple Respiratory: Positive: Lungs clear, Normal breath sounds, No respiratory distress Cardiovascular: Positive: RRR Musculoskeletal: Positive: Strength Intact, ROM Intact Neurological: Positive: Alert, Muscle Tone Normal Psychological: Positive: Age Appropriate Behavior Skin Exam: Normal Throat Pain/Nasal Course/Dx - Course Course Of Treatment: We discussed viral versus bacterial infections and the role of antibiotics. At this time the patient prefers not to be on antibiotics. Patient should get reevaluated if worse or not improving or any questions or concerns. - Differential Dx/Diagnosis Provider Diagnosis: Bronchitis with bronchospasm, Upper respiratory infection Discharge ED - Sign-Out/Discharge Documenting (check all that apply): Patient Departure All imaging exams completed and their final reports reviewed: No Studies - Discharge Plan Condition: Stable Disposition: HOME Prescriptions: Albuterol HFA INHALER* [Ventolin HFA Inhaler*] 2 puff INH Q4H PRN #1 mdi PRN Reason: Wheezing Fluticasone NASAL SPRAY 50MCG* [Flonase NASAL SPRAY 50MCG*] 2 spray BOTH NARES DAILY #1 btl Patient Education Materials: Upper Respiratory Infection (ED), Acute Bronchitis (ED), Bronchospasm (ED) Forms: *Work Release Referrals: Puma Briones MD [Primary Care Provider] - Additional Instructions: FOLLOW UP WITH YOUR DOCTOR IF NOT COMPLETELY IMPROVED. GET RECHECKED SOONER IF YOUR CONDITION WORSENS OR ANY QUESTIONS OR CONCERNS. - Billing Disposition and Condition Condition: STABLE Disposition: Home
== END 2018-12-07 10:57 | disposition home or self-care (01) ==
LOC: UCEAST 10:05
DX: J20.9 Acute bronchitis, unspecified (principal); J06.9 Acute upper respiratory infection, unspecified; B19.20 Unspecified viral hepatitis C without hepatic coma; F17.210 Nicotine dependence, cigarettes, uncomplicated; Z88.5 Allergy status to narcotic agent
CPT/HCPCS: 99212; G0463

== ENCOUNTER 2019-06-12 12:40 | Emergency (ER) | payer BC ==
[2019-06-12 14:05] VITALS: BP 133/84
[2019-06-12] MEDS ORDERED: Albuterol 2.5 MG/3 ML NEB.SOL* (0.083%) INH ONE (14:59)
--- NOTE | 2019-06-12 15:43 | UC ---
Respiratory Complaint HPI - HPI Summary HPI Summary: 33-year-old woman comes in with a chief complaint of cough chest congestion wheezing since the end of March. She had a bronchitis at that time and never really totally improved. Been having a cough with fevers on and off. Does not have a history of asthma although she has used albuterol in the past when she's had a bronchitis which has helped. No known exposure to covid 19. No bodyaches. - History of Current Complaint Chief Complaint: UCGeneralIllness Stated Complaint: COUGH SORE THROAT CONGESTION Time Seen by Provider: 06/12/19 14:33 Hx Last Menstrual Period: 3-4 weeks ago Pain Intensity: 0 - Allergies/Home Medications Allergies/Adverse Reactions: Allergies Allergy/AdvReac Type Severity Reaction Status Date / Time atomoxetine [From Strattera] Allergy Severe Palpitation Verified 06/12/19 14:05 s morphine Allergy Severe Headache Verified 06/12/19 14:05 promethazine [From Phenergan] Allergy Severe Hives Verified 06/12/19 14:05 OPIATES Allergy Severe SERVERE Uncoded 06/12/19 14:05 ADDICTION TO ALL OPIATES Home Medications: Home Medications Albuterol HFA INHALER* [Ventolin HFA Inhaler*] 2 puff INH Q4H PRN #1 mdi [Rx] DOXYcycline CAP(*) [DOXYcycline 100MG CAP(*)] 100 mg PO BID #20 cap 06/12/19 [Rx ] predniSONE 20 mg TAB [Deltasone 20 MG TAB*] 40 mg PO DAILY #10 tab 06/12/19 [Rx] PMH/Surg Hx/FS Hx/Imm Hx Previously Healthy: Yes Other History Of: Hepatitis C Negative For: Anticoagulant Therapy - Surgical History Surgical History: Yes Surgery Procedure, Year, and Place: 1989'tonsills. 2006 cyst removed right breast. 2007 . 2008/2009 TUBAL LIGATION - Family History Known Family History: Positive: None, Other - depression - Social History Alcohol Use: Rare Substance Use Type: Marijuana Substance Use Comment - Amount & Last Used: former Smoking Status (MU): Current Some Day Smoker Amount Used/How Often: <1/2 PPD Length of Time of Smoking/Using Tobacco: since age 16 Have You Smoked in the Last Year: Yes Household Exposure Type: Cigarettes - Immunization History Most Recent Tetanus Shot: not sure Review of Systems All Other Systems Reviewed And Are Negative: Yes Constitutional: Positive: Other - see hpi Skin: Positive: Negative Eyes: Positive: Negative ENT: Positive: Nasal Discharge, Sinus Congestion Respiratory: Positive: Cough, Other - see hpi Cardiovascular: Positive: Negative Gastrointestinal: Positive: Negative Motor: Positive: Negative Neurovascular: Positive: Negative Musculoskeletal: Positive: Negative Neurological/Mental Status: Positive: Negative Psychological: Positive: Negative Is Patient Immunocompromised?: No Physical Exam Triage Information Reviewed: Yes Appearance: No Pain Distress, Well-Nourished, Ill-Appearing - mild Vital Signs: Initial Vital Signs Temp 98.7 F 06/12/19 14:00 Pulse 85 06/12/19 14:00 Resp 16 06/12/19 14:00 BP 133/84 06/12/19 14:00 Pulse Ox 99 06/12/19 14:00 Vital Signs Reviewed: Yes Eye Exam: Normal Eyes: Positive: Conjunctiva Clear ENT: Positive: Pharynx normal, Nasal congestion Neck: Positive: Supple Respiratory: Positive: No respiratory distress, Rhonchi Cardiovascular: Positive: RRR Musculoskeletal: Positive: Strength Intact, ROM Intact Neurological: Positive: Alert, Muscle Tone Normal Psychological: Positive: Age Appropriate Behavior Skin Exam: Normal Respiratory Course/Dx - Course Course Of Treatment: Conference Planner: Karlie Perales S ([id number]) Lumber Buyer: ROBIN (ROBIN) Report Date: 06/12/2019 15:23:00 Report Status: Final Start of Report Content Patient Name: PHONG NEWMAN Medical Record#: [id number] Ordering Physician: Phani Miller MD Acct.#: [id number] : 1985 Age : 33 Sex: F Location: [facility] Exam Date: 06/12/19 1445 ADM Status: REG ER Order Information: CHEST PA LAT 2 VWS Accession Number: [id number] CPT: 32255 Indication: Cough, shortness of breath. 2 views of the chest demonstrate no mediastinal shift. Heart is of normal size and configuration. Lung dennis show no pleural fluid, pneumonia or pneumothorax. No changes noted since June 09, 2016. IMPRESSION: No active cardiopulmonary disease is noted. < Electronically signed by Karlie Perales MD in [place]> 06/12/191518 Dictated By: Karlie Perales MD Dictated Date/Time: 06/12/191517 Transcribed Date/Time: 06/12/191517 Copy to: CC:Puma Briones MD; Phani Miller MD Imaging - [facility] - [place] [facility] [address] [address] ph ([phone]) ph ([phone]) ph ([phone]) End of Report Content I discussed the chest x-ray with the patient. No pneumonia seen. Patient's had her symptoms since in the March. No fever here no bodyaches no known contact with Covid 19. Symptoms are most consistent with a bronchitis with bronchospasm. Because the patient has had her illness was a treat with doxycycline also treat with prednisone and albuterol. Patient is to get reevaluated if worse or not improving. - Differential Dx/Diagnosis Provider Diagnosis: Bronchitis with bronchospasm Discharge ED - Sign-Out/Discharge Documenting (check all that apply): Patient Departure All imaging exams completed and their final reports reviewed: Yes - Discharge Plan Condition: Stable Disposition: HOME Prescriptions: Albuterol HFA INHALER* [Ventolin HFA Inhaler*] 2 puff INH Q4H PRN #1 mdi PRN Reason: Wheezing DOXYcycline CAP(*) [DOXYcycline 100MG CAP(*)] 100 mg PO BID #20 cap predniSONE 20 mg TAB [Deltasone 20 MG TAB*] 40 mg PO DAILY #10 tab Patient Education Materials: Acute Bronchitis (ED), Bronchospasm (ED) Forms: *Work Release Referrals: Puma Briones MD [Primary Care Provider] - Additional Instructions: FOLLOW UP WITH YOUR DOCTOR IF NOT COMPLETELY IMPROVED. GO TO THE EMERGENCY DEPARTMENT IF WORSE OR ANY QUESTIONS OR CONCERNS. - Billing Disposition and Condition Condition: STABLE Disposition: Home
== END 2019-06-12 15:56 | disposition home or self-care (01) ==
LOC: UCEAST 12:40
DX: J20.9 Acute bronchitis, unspecified (principal); Z88.5 Allergy status to narcotic agent; Z88.8 Allergy status to other drugs, medicaments and biological substances; Z72.0 Tobacco use
CPT/HCPCS: 71046; 99212; G0463